=== PATIENT | female | born 1990 | race Caucasian/White ===

== ENCOUNTER 2022-06-02 10:54 | Emergency (ER) | payer OTHER ==
[~2022-06-02] VITALS: Ht 165.1 cm; Wt 69.5 kg
[2022-06-02 11:02] VITALS: BP 135/84
[2022-06-02 11:37] VITALS: BP 127/73
[2022-06-02] MEDS ORDERED: AMOX500C25 PO (12:30)
[2022-06-02] MEDS ORDERED: BENZ-300 PO (12:30)
[2022-06-02] MEDS ORDERED: IBUP-2213 PO (12:30)
== END 2022-06-02 12:40 | disposition home or self-care (01) ==
LOC: MED 10:54
DX: J02.9 Acute pharyngitis, unspecified (principal); Z20.822 Contact with and (suspected) exposure to COVID-19; R00.0 Tachycardia, unspecified
CPT/HCPCS: 99283